=== PATIENT | female | born 2000 | race Caucasian/White ===

== ENCOUNTER 2020-07-24 12:45 | Emergency (ER) | payer MEDICAID ==
--- NOTE | 2020-07-24 13:06 | EDM.PDOC ---
ED HPI GENERAL MEDICAL PROBLEM - General Chief Complaint: Lower Extremity Injury/Pain Stated Complaint: SPRAIN TO LEFT FOOT Time Seen by Provider: 07/24/20 12:49 Source of Information: Reports: Patient History Limitations: Reports: No Limitations - History of Present Illness INITIAL COMMENTS - FREE TEXT/NARRATIVE: HISTORY AND PHYSICAL: History of present illness: Patient is a 20-year-old female who presents to the emergency room with complaints of right lateral foot pain. She was walking into work when she stepped on a large rock resulting in her rolling her foot and tripping. She did not fall to the ground but feels like she sprained her foot as she does have pain with weightbearing and soft tissue swelling. She denies hitting her head or having any loss of consciousness. She denies any other extremity involvement. She offers no systemic complaints. Denies any chance of today. Review of systems: As per history of present illness and below otherwise all systems reviewed and negative. Past medical history: As per history of present illness and as reviewed below otherwise noncontributory. Surgical history: As per history of present illness and as reviewed below otherwise noncontributory. Social history: See social history for further information Family history: As per history of present illness and as reviewed below otherwise noncont ributory. Physical exam: General: Well developed and well nourished. Alert and orientated x 3. Nontoxic in appearance and in no acute distress. Vital signs are stable and have been reviewed by me. Nursing notes were reviewed. HEENT: Atraumatic, normocephalic, pupils equal and reactive bilaterally, negative for conjunctival pallor or scleral icterus, mucous membranes moist, trachea midline. No drooling or trismus noted. No meningeal signs. No hot potato voice noted. Lungs: Clear to auscultation bilaterally. No wheezes, rales, or rhonchi. Chest nontender. Normal work of breathing, no accessory muscles used. Heart: S1S2, regular rate and rhythm without overt murmur, gallops, or rubs. No JVD. No peripheral edema Abdomen: Soft, nondistended, nontender. Normoactive bowel sounds. Negative for masses or costovertebral tenderness. Genitourinary/Rectal: Deferred. Skin: Intact, warm, dry. No lesions or rashes noted. Hematologic: No petechiae or purpra. Mucosa appropriate color and normal nail bed color and refill. Extremities: Pain with palpation of the right lateral mid foot (skin is intact, +soft tissue swelling is noted). No malleolus discomfort bilaterally. Good flexion and extension at the ankle, moves all extremities per self without difficulty or deficits, negative for cords or calf pain. Neurovascular unremarkable. Neuro: Awake, alert, oriented. Cranial nerves II through XII unremarkable. Cerebellum unremarkable. Motor and sensory unremarkable throughout. Exam nonfocal. Psychiatric: Mood and affect are appropriate. Normal thought process. Answering questions appropriately. Notes: *This patient was seen and evaluated during the 2019 SARS-CoV-2 novel coronavirus pandemic period. Community viral transmission is ongoing at time of this encounter and the emergency department is operating under pandemic response procedures. X-ray shows an acute transverse nondisplaced fracture is in the base of the right 5th metatarsal. No other osseous abnormality. Mild lateral soft tissue swelling. CAM walker boot and crutches for right foot fracture. Use to be nonweight bearing. Wear over the next 1-2 weeks or until follow up with podiatry/orthopedics. I have talked with the patient about today's findings, in addition to providing specific details for plan of care. Reassessment at the time of disposition demonstrates that the patient is in no acute distress. The patient is stable for discharge, counseling was provided and we discussed in great detail signs and symptoms that would prompt them to return to the Emergency Department. Medication, follow up and supportive care measures were reviewed and discussed. Voices understanding and is agreeable to plan of care. Denies any further questions or concerns at this time. Diagnostics: Foot x-ray Therapeutics: CAM walker boot and crutches Prescription: Anderson (#30) Impression: Metatarsal fracture, right 5th digit Plan: 1. Rest, ice, elevate the extremity as able. Use the cam walker boot and crutches to be nonweightbearing over the next 1 to 2 weeks. 2. You can alternate Tylenol and ibuprofen as needed for pain and fever management. Anderson for moderate to severe pain. This medication may cause drowsiness, so do not take while driving or needing to be functioning outside the house. 3. We encourage you to follow up with podiatry or orthopedics next week for re- evaluation and further care/management. 4. If your symptoms should worsen, new symptoms develop or any of the signs and symptoms we discussed should arise please return to the emergency room or call 911 (if needed). Definitive disposition and diagnosis as appropriate pending reevaluation and review of above. R ankle Pain Score (Numeric/FACES): 7 - Related Data Allergies Allergy/AdvReac Type Severity Reaction Status Date / Time Sulfa (Sulfonamide Allergy Other Verified 07/24/20 12:55 Antibiotics) Home Meds: Home Meds . [No Known Home Meds] 07/24/20 [History] Past Medical History - Past Health History Medical/Surgical History: Denies Medical/Surgical History Social & Family History - Family History Family Medical History: No Pertinent Family History - Caffeine Use Caffeine Use: Reports: None - Recreational Drug Use Recreational Drug Use: No Review of Systems - Review of Systems Review Of Systems: Comprehensive ROS is negative, except as noted in HPI. ED EXAM, GENERAL - Physical Exam Exam: See Below Course - Vital Signs Last Recorded V/S: Last Vital Signs Temp 97.6 F 07/24/20 12:56 Pulse 88 07/24/20 12:56 Resp 18 07/24/20 12:56 BP 142/90 H 07/24/20 12:56 Pulse Ox 95 07/24/20 12:56 - Orders/Labs/Meds Orders: Active Orders 24 hr Category Date Time Status DME for Discharge [COMM] Stat Oth 07/24/20 13:59 Ordered Departure - Departure Time of Disposition: 14:10 Disposition: Home, Self-Care 01 Clinical Impression: Metatarsal bone fracture Qualifiers: Encounter type: initial encounter Metatarsal bone: fifth Fracture type: closed Fracture alignment: nondisplaced Laterality: right Qualified Code(s): S92.354A - Nondisplaced fracture of fifth metatarsal bone, right foot, initial encounter for closed fracture - Discharge Information Instructions: Metatarsal Fracture Referrals: PCP,None [Primary Care Provider] - Forms: ED Department Discharge Additional Instructions: The following information is given to patients seen in the emergency department who are being discharged to home. This information is to outline your options f or follow-up care. We provide all patients seen in our emergency department with a follow-up referral. The need for follow-up, as well as the timing and circumstances, are variable depending upon the specifics of your emergency department visit. If you don't have a primary care physician on staff, we will provide you with a referral. We always advise you to contact your personal physician following an emergency department visit to inform them of the circumstance of the visit and for follow-up with them and/or the need for any referrals to a consulting specialist. The emergency department will also refer you to a specialist when appropriate. This referral assures that you have the opportunity for follow-up care with a specialist. All of these measure are taken in an effort to provide you with optimal care, which includes your follow-up. Under all circumstances we always encourage you to contact your private physician who remains a resource for coordinating your care. When calling for follow-up care, please make the office aware that this follow-up is from your recent emergency room visit. If for any reason you are refused follow-up, please contact the [facility] Emergency Department at and asked to speak to the emergency department charge nurse. [facility] [address] [place] [id number] [id number] Thank you for choosing the [facility] emergency department in [place] for your medical needs today. It was a pleasure caring for you. Today you were seen in the emergency department for foot injury/fracture. 1. Rest, ice, elevate the extremity as able. Use the cam walker boot and crutches to be nonweightbearing over the next 1 to 2 weeks. 2. You can alternate Tylenol and ibuprofen as needed for pain and fever management. Anderson for moderate to severe pain. This medication may cause drowsiness, so do not take while driving or needing to be functioning outside the house. 3. We encourage you to follow up with podiatry or orthopedics next week for re- evaluation and further care/management. 4. If your symptoms should worsen, new symptoms develop or any of the signs and symptoms we discussed should arise please return to the emergency room or call 911 (if needed). Sepsis Event Note (ED) - Evaluation Sepsis Screening Result: No Definite Risk - Focused Exam Vital Signs: Vital Signs Temp Pulse Resp BP Pulse Ox 07/24/20 12:56 97.6 F 88 18 142/90 H 95 - My Orders Last 24 Hours: My Active Orders 07/24/20 13:59 DME for Discharge [COMM] Stat - Assessment/Plan Last 24 Hours: My Active Orders 07/24/20 13:59 DME for Discharge [COMM] Stat
--- NOTE | 2020-07-24 14:07 | CR ---
Indication: Injury and pain Technique: Right foot 3 views Comparison: None Findings/Impression: Bones: Acute transverse nondisplaced fracture is in the base of the right 5th metatarsal. No other osseous abnormality. Mild lateral soft tissue swelling. Joint spaces: Unremarkable. Soft tissues: Unremarkable. Dictated by Rudy Montilla MD @ Jul 24 2020 2:01PM Signed by Dr. Rudy Montilla @ Jul 24 2020 2:06PM
== END 2020-07-24 14:20 | disposition home or self-care (01) ==
LOC: MW.ED 12:45
DX: S92.354A Nondisplaced fracture of fifth metatarsal bone, right foot, initial encounter for closed fracture (principal); Z88.2 Allergy status to sulfonamides; W18.41XA Slipping, tripping and stumbling without falling due to stepping on object, initial encounter
CPT/HCPCS: 73630-26-RT; 73630-RT; 99283